=== PATIENT | female | born 1945 | race Caucasian/White ===

== ENCOUNTER 2017-04-03 06:56 | Emergency (ER) | payer MEDICARE ==
[2017-04-03] MEDS ORDERED: ASPIRIN 81 MG CHEWABLE TABLET PO ONE (07:16)
[2017-04-03 07:27] LABS: BASO % 0.8 % (0-6); EOS % 1.8 % (0-6); HEMATOCRIT 40.8 % (35.0-47.0); HEMOGLOBIN 13.9 gm/dl (11.6-16.0); LYMPH % 46.6 % (16-45); MEAN CELL VOLUME 95.8 fl (81-97); MEAN CORPUSCULAR HEMOGLOBIN 32.6 pg (27-33); MEAN CORPUSCULAR HGB CONC 34.1 g/dl (32-36); MEAN PLATELET VOLUME 9.8 fl (7.4-10.4); MONO % 9.8 % (0-9); PLATELET COUNT 290 K/uL (130-400); RED BLOOD COUNT 4.26 M/uL (3.80-5.40); RED CELL DISTRIBUTION WIDTH 15.7 % (11.5-14.5); WHITE BLOOD COUNT W/O DIFF 5.1 K/uL (4.2-12.2)
[2017-04-03] MEDS ORDERED: ASPIRIN 325 MG TABLET PO ONE (07:27)
--- NOTE | 2017-04-03 07:29 | Emergency Department Record ---
History of Present Illness - General Chief Complaint: Dizziness Stated Complaint: DIZZY Time Seen by Provider: 04/03/17 07:16 Source: Patient, RN notes reviewed Mode of Arrival: Wheelchair - History of Present Illness Initial Comments: Patient states dizzy working out in health works upstairs and didn't pass out and staff helped her sit down and no chest pain and no dyspnea and no congestion slight cough and she thinks it might be her BP meds. She had a similiar episode about one week ago in the garden. Patient denies dizziness turning head right or left. Patient denies chest pain. Onset/Timin -: Minutes(s) Timing: Sudden onset Description: Lightheadedness, Nausea History of Same: No History of Trauma: No Severity: Mild Improves With: Other Worsens With: Nothing Associated Symptoms: Denies other symptoms - Jose Armando Coma Scale Eye Response: (4) Open spontaneously Motor Response: (6) Obeys commands Verbal Response: (5) Oriented Jose Armando Total: 15 - Symptoms of Stroke Symptoms of stroke: Dizziness - Related Data Home Medications Medication Instructions Recorded Confirmed Last Taken Calcium Carbonate [Calcium] 600 mg PO DAILY 04/03/17 04/03/17 Unknown Cholecalciferol (Vitamin D3) 5,000 unit PO ASDIR 04/03/17 04/03/17 Unknown [Vitamin D3] Magnesium 200 mg PO DAILY 04/03/17 04/03/17 Unknown Methotrexate [Xatmep] 2.5 mg PO ASDIR 04/03/17 04/03/17 Unknown Prednisone [Prednisone 1Mg] 3 mg PO DAILY 04/03/17 04/03/17 Unknown Salsalate [Salsalate] 1,000 mg PO BID 04/03/17 04/03/17 Unknown Sulfasalazine [Azulfidine] 500 mg PO BID 04/03/17 04/03/17 Unknown Valsartan/Hydrochlorothiazide 1 each PO ASDIR 04/03/17 04/03/17 Unknown [Diovan Hct 80-12.5 mg Tablet] Allergies Allergy/AdvReac Type Severity Reaction Status Date / Time No Known Drug Allergies Allergy Verified 04/03/17 07:07 Travel Screening - Travel/Exposure Within Last 30 Days Have you traveled within the last 30 days?: No - Travel/Exposure Within Last Year Have you traveled outside the [place] in the last year?: No - Additonal Travel Details Have you been exposed to anyone with a communicable illness?: No - Travel Symptoms Symptom Screening: None Review of Systems Reviewed: No additional complaints except as noted below Constitutional: Reports: As per HPI. Denies: Chills, Fever, Malaise, Night sweats, Weakness, Weight change Eyes: Reports: As per HPI. Denies: Eye discharge, Eye pain, Photophobia, Vision change ENT: Reports: As per HPI. Denies: Congestion, Dental pain, Ear pain, Epistaxis , Hearing loss, Throat pain Respiratory: Reports: As per HPI. Denies: Cough, Dyspnea, Hemoptysis, Stridor, Wheezes Cardiovascular: Reports: As per HPI. Denies: Arrhythmia, Chest pain, Dyspnea on exertion, Edema, Murmurs, Orthopnea, Palpitations, Paroxysmal nocturnal dyspnea, Rheumatic Fever, Syncope Endocrine: Reports: As per HPI. Denies: Fatigue, Heat or cold intolerance, Polydipsia, Polyuria Gastrointestinal: Reports: As per HPI. Denies: Abdominal pain, Constipation, Diarrhea, Hematemesis, Hematochezia, Melena, Nausea, Vomiting Genitourinary: Reports: As per HPI. Denies: Abnormal menses, Discharge, Dyspareunia, Dysuria, Frequency, Hematuria, Incontinence, Retention, Urgency Musculoskeletal: Reports: As per HPI. Denies: Arthralgia, Back pain, Gout, Joint swelling, Myalgia, Neck pain Skin: Reports: As per HPI. Denies: Bruising, Change in color, Change in hair/ nails, Lesions, Pruritus, Rash Neurological: Reports: As per HPI. Denies: Abnormal gait, Confusion, Headache, Numbness, Paresthesias, Seizure, Tingling, Tremors, Vertigo, Weakness Psychiatric: Reports: As per HPI. Denies: Anxiety, Auditory hallucinations, Depression, Homicidal thoughts, Suicidal thoughts, Visual hallucinations Hematological/Lymphatic: Reports: As per HPI. Denies: Anemia, Blood Clots, Easy bleeding, Easy bruising, Swollen glands Past Medical History - SOCIAL HISTORY Smoking Status: Never smoker Alcohol Use: None Drug Use: None - RESPIRATORY Hx Respiratory Disorders: No - CARDIOVASCULAR Hx Cardio Disorders: Yes Hx Hypertension: Yes - NEURO Hx Neuro Disorders: Yes Hx TIA: Yes - GI Hx GI Disorders: No - Hx Genitourinary Disorders: No - ENDOCRINE Hx Endocrine Disorders: No - MUSCULOSKELETAL Hx Musculoskeletal Disorders: Yes Hx Arthritis: Yes (RA, osteo, psoriatic) - PSYCH Hx Psych Problems: No - HEMATOLOGY/ONCOLOGY Hx Hematology/Oncology Disorders: Yes Comment:: ITP Family Medical History Any Significant Family History?: No Physical Exam - General General Appearance: Alert, Oriented x3, Cooperative, No acute distress - Head Head exam: Normal inspection - Eye Eye exam: Normal appearance, PERRL Pupils: Normal accommodation - ENT ENT exam: Normal exam, Mucous membranes moist, Normal external ear exam, Normal orophraynx, TM's normal bilaterally Ear exam: Normal external inspection. negative: External canal tenderness Nasal Exam: Normal inspection. negative: Discharge, Sinus tenderness Mouth exam: Normal external inspection, Tongue normal Teeth exam: Normal inspection. negative: Dental caries Throat exam: Normal inspection. negative: Tonsillar erythema, Tonsillar exudate - Neck Neck exam: Normal inspection, Full ROM. negative: Tenderness - Respiratory Respiratory exam: Normal lung sounds bilaterally. negative: Respiratory distress - Cardiovascular Cardiovascular Exam: Regular rate, Normal rhythm, Normal heart sounds - GI/Abdominal GI/Abdominal exam: Soft, Normal bowel sounds. negative: Tenderness - Rectal Rectal exam: Deferred - exam: Deferred - Extremities Extremities exam: Normal inspection, Full ROM, Normal capillary refill. negative: Tenderness - Back Back exam: Reports: Normal inspection, Full ROM. 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 cardiology consult - Reevaluation(s) Reevaluation #1: stress test done by Dr. Vega and negative 04/03/17 17:14 Medical Decision Making - Lab Data Result diagrams: 04/03/17 07:10 04/03/17 07:10 Disposition Clinical Impression: Near syncope, Dehydration Disposition: Home, Self-Care Condition: (1) Good Instructions: Dehydration (ED) Additional Instructions: follow up with Dr. Malloy in 3-7 days drink more fluid and take a bp pill every other day till Dr. Malloy can adjust the bp meds Forms: Patient Portal Access Time of Disposition: 17:18 Quality - Quality Measures Quality Measures: N/A - Blood Pressure Screening Blood Pressure Classification: Normal BP Reading Systolic Measurement: 103 Diastolic Measurement: 70 Screening for High Blood Pressure: < Normal BP, F/U Not Required > [G8783] Normal BP Follow-up Interventions: No follow-up required
[2017-04-03] MEDS ORDERED: 0.9 % SODIUM CHLORIDE 1000ML 1,000 ML IV SCH (07:30)
[2017-04-03 07:38] LABS: BLOOD UREA NITROGEN 15 mg/dL (7-17); CREATININE 0.9 mg/dL (0.52-1.04); EST GLOMERULAR FILTRATION RATE > 60 ml/min; GLUCOSE,RANDOM 109 mg/dL (70-110)
[2017-04-03 07:50] LABS: CKMB 1.1 ug/L (0-6)
[2017-04-03 07:52] LABS: TROPONIN I < 0.012 ng/mL (0.00-0.034)
--- NOTE | 2017-04-04 03:04 | Medical Records Consult ---
HISTORY OF PRESENT ILLNESS: Margaret Tobar is a 71-year-old female who was in the exercise rehabilitation facilitation at [facility] this morning. She uses the center not for rehabilitation but for exercise. She exercises five days a week because of rheumatoid arthritis. The patient states that while she was exercising she felt dizzy, and a health worker felt that her exercise should be stopped. She had no chest pain. She had no dyspnea. She had no other significant symptoms. She was mildly hypotensive at the time with a blood pressure of 103/70. She had been sitting in the emergency room all day when I had an opportunity to see her. Her lab work was essentially normal with two negative serum troponins. Electrocardiogram was also normal. She also had a similar episode approximately a week ago when she was working in her garden. The patient states that she previously was on lisinopril. This was changed because of a cough. Her medications include valsartan/hydrochlorothiazide 80/12.5 mg. DIAGNOSTIC DATA: I performed a treadmill exercise test on the patient, and she did extremely well. Her resting blood pressure was 118/60. I personally supervised the treadmill and watched her exercise for a total of 8.5 METs. Her blood pressure increased to 166/74. She was totally symptom free. MEDICATIONS: Her medications include calcium supplement, Vitamin D3, magnesium , methotrexate for rheumatoid arthritis, prednisone 3.0 mg daily, Azulfidine, salsalate, and valsartan/hydrochlorothiazide 80/12.5 mg. REVIEW OF SYSTEMS: This has been well documented on the Review of Systems completed by Dr. Brody. I have personally reviewed these, and no additions are necessary. She has no history of cardiovascular, neurologic, gastrointestinal, genitourinary, or endocrine disorder. Her only issues are her rheumatoid arthritis and psoriasis. She has no psychiatric problems. She has had no hematologic problems. PAST MEDICAL HISTORY: She has never been a smoker. She does not use alcohol. PHYSICAL EXAMINATION: General: Physical examination reveals a well nourished, well hydrated female. At the time of my evaluation, she was speaking without conversational dyspnea in the emergency room. Lungs: Her lungs were clear to auscultation. Cardiac Examination: Heart sounds clear. S1 normal. S2 physiologic. No S3 or S4. She has no murmurs. Abdomen: Soft without masses. Extremities: No peripheral edema. LABORATORY DATA: The only abnormality on her biochemical profile was hypokalemia at 3.5. IMPRESSION: At this point, there is no evidence that she has structural heart disease causing her current symptoms. It might well be that her blood pressure medication in the heat is causing her to have hypotensive and near syncopal episodes. I recommended that the valsartan/hydrochlorothiazide be stopped and that she take her home blood pressure. She should go back and see Dr. Juanjose Malloy who can then decide on an alternate antihypertensive program. The highest pressure that she ever recorded was 151 to 160/90. She has been relatively hypotensive since she has been on this program. Lisinopril is not a good alternative because of a cough. At this point, I did not feel echocardiography or any further stress testing would be helpful. I think it is related to her blood pressure medication. MTDToni
--- NOTE | 2017-04-04 03:11 | Stress Test Report ---
STUDY: Treadmill exercise test. RESTING ELECTROCARDIOGRAM: The heart rate is 74. The HI interval is 0.12. The QRS is 0.04. The axis is +60 degrees. Resting electrocardiogram is normal. FINDINGS: The patient was placed on a motorized treadmill. She was able to exercise on a Jose Elias protocol for 7 minutes, 2 seconds to a MET level of 8.50. Heart rate increased from 68 to 169 which is 111% of age predicted for her age group. Resting blood pressure was 118/60. This increased to 166/74. During this period of exercise, the patient was totally symptom free. On her monitor strip she had no additional ST or T-wave changes and no significant cardiac arrhythmia. SUMMARY: This is a negative treadmill exercise test for exercise-induced ischemia and/or arrhythmia. The test is valid since the patient reached greater than 85% of predicted heart rate for her age group. The patient had absolutely no hypotension or dizziness during exercise. MTDD
--- NOTE | 2017-04-04 10:13 | RADIOLOGY REPORT ---
EXAM: CHEST, TWO VIEWS HISTORY: DIFFICULTY BREATHING. TECHNIQUE: Frontal and lateral views of the chest were performed. FINDINGS: The heart size is normal. The lung davila are clear. The osseous structures are normal. IMPRESSION: NEGATIVE CHEST EXAMINATION. JOB NUMBER: [id number] MTDD
== END 2017-04-03 17:29 | disposition home or self-care (01) ==
LOC: ER 06:56
DX: R55 Syncope and collapse (principal); E86.0 Dehydration; R11.0 Nausea; R60.0 Localized edema; I10 Essential (primary) hypertension
CPT/HCPCS: 71020; 80048; 82553; 84484; 85025; 85730; 93017; 99284; J7030